=== PATIENT | female | born 1960 | race Caucasian/White ===

== ENCOUNTER → 2017-04-10 | Outpatient (CLI) | payer OTHER | LOC: KOH-I 11:33 | DX: M06.9 Rheumatoid arthritis, unspecified (principal) | CPT/HCPCS: 73030; 73562; 73630 ==

== ENCOUNTER → 2021-07-20 | Outpatient (CLI) | payer OTHER | LOC: EXRD 12:57 | DX: C50.811 Malignant neoplasm of overlapping sites of right female breast (principal); Z78.0 Asymptomatic menopausal state; M85.88 Other specified disorders of bone density and structure, other site | CPT/HCPCS: 77080 ==